=== PATIENT | male | born 1965 | race African-American/Black ===

== ENCOUNTER 2017-01-05 10:06 | Emergency (ER) | payer MEDICAID ==
[~2017-01-05] VITALS: Ht 180.3 cm; Wt 73.0 kg
[2017-01-05] MEDS ORDERED: MORPHINE SULFATE 4 MG/ML CPJ (NOT FOR IM USE) IV STA (10:30)
[2017-01-05] MEDS ORDERED: ONDANSETRON HCL 4MG/2ML VIAL IV STA (10:30)
[2017-01-05] MEDS ORDERED: SODIUM CHLORIDE 0.9% 1,000 ML IV ONE ×2 (10:30→17:23)
[2017-01-05] MEDS ORDERED: ETOMIDATE 2MG/ML 10ML VIAL IV ONE (10:45)
[2017-01-05] MEDS ORDERED: ONDANSETRON HCL 4MG/2ML VIAL IV ONE ×2 (11:15→17:30)
[2017-01-05] MEDS ORDERED: MIDAZOLAM HCL 5 MG/ML VIAL ONE (11:15)
[2017-01-05] MEDS ORDERED: MIDAZOLAM HCL 2 MG/2 ML VIAL IV ONE ×2 (11:15→17:15)
[2017-01-05] MEDS ORDERED: FENTANYL CITRATE/PF 50MCG/ML 2ML VIAL IV ONE ×2 (11:15→17:15)
[2017-01-05] MEDS ORDERED: FENTANYL CITRATE/PF 50MCG/ML 2ML VIAL ONE (11:16)
[2017-01-05] MEDS ORDERED: ONDANSETRON HCL 4MG/2ML VIAL ONE (11:17)
[2017-01-05] MEDS ORDERED: MORPHINE SULFATE 4 MG/ML CPJ (NOT FOR IM USE) IV ONE (13:15)
[2017-01-05] MEDS ORDERED: DEXT 5%/0.45% NACL 1000ML 1,000 ML IV SCH (15:10)
[2017-01-05] MEDS ORDERED: HYDROCODONE/ACETAMINOPHEN 5/325MG TABLET PO PRN (15:15)
[2017-01-05] MEDS ORDERED: ACETAMINOPHEN 325MG TABLET PO PRN (15:15)
[2017-01-05] MEDS ORDERED: CLONIDINE 0.1MG TABLET PO PRN (15:15)
[2017-01-05] MEDS ORDERED: DIPHENHYDRAMINE 50MG/ML VIAL IV PRN (15:15)
[2017-01-05] MEDS ORDERED: IPRATROPIUM/ALBUTEROL 0.5-3(2.5)MG/3ML NEB INH PRN (15:15)
[2017-01-05] MEDS ORDERED: MORPHINE SULFATE 2 MG/ML CPJ (NOT FOR IM USE) IV PRN (15:15)
[2017-01-05] MEDS ORDERED: ONDANSETRON HCL 4MG/2ML VIAL IV PRN (15:15)
[2017-01-05 15:57] LABS: CHLORIDE 103 mEq/L (98-107); INDEX HEMOLYSI 1 (1-3); INDEX ICTERIC 1 (1-4); INDEX LIPEMIC 1 (1-3); INR 1.1; PARTIAL THROMBOPLASTIN TIME 28.7 sec (24.0-34.0); PROTHROMBIN TIME 11.4 sec
[2017-01-05 16:02] LABS: BASOPHILS % 0.3 % (0.0-2.0); DIFFERENTIAL COMMENT 0; HEMATOCRIT. 36.6 % (42.0-52.0); HEMOGLOBIN. 12.5 g/dL (14.0-18.0); LYMPHOCYTES % 14.3 % (20.0-50.0); MEAN CORPUSCULAR HEMOGLOBIN 33.8 pg (28.0-32.0); MEAN CORPUSCULAR HGB CONC 34.1 g/dL (31.0-37.0); MEAN CORPUSCULAR VOLUME 99.1 fL (80.0-94.0); MEAN PLATELET VOLUME 10.7 fl (7.4-10.4); NEUTROPHILS % 75.4 % (40.0-76.0); PLATELET 114 x1000/uL (130-400); RED CELL DISTRIBUTION WIDTH 12.3 % (11.6-14.6); WHITE BLOOD COUNT 8.1 x1000/uL (4.5-11.0)
[2017-01-05 16:04] LABS: ANION GAP 10; CALCIUM 8.5 mg/dL (8.5-10.1); CARBON DIOXIDE 30 mEq/L (21-32); UREA NITROGEN BLOOD 12 mg/dL (7-21); eGFR > 60 mL/min (>60)
[2017-01-05] MEDS ORDERED: KETAMINE HCL 50 MG/ML 10ML IV ONE (17:15)
[2017-01-05 18:46] VITALS: BP 153/89
== END 2017-01-05 20:30 | disposition home or self-care (01) ==
LOC: ER 11:39
DX: S43.004A Unspecified dislocation of right shoulder joint, initial encounter (principal); F17.210 Nicotine dependence, cigarettes, uncomplicated; X58.XXXA Exposure to other specified factors, initial encounter; Y93.72 Activity, wrestling; Y99.8 Other external cause status; Y92.89 Other specified places as the place of occurrence of the external cause
CPT/HCPCS: 23650; 36415; 71010; 73030; 80048; 85025; 85610; 85730; 86850; 86900; 86901; 96361; 96374; 96375; 96376; 99152; 99285; J2250; J2270; J2405; J3010; J3490; J7030; Z7610; L3670